=== PATIENT | male | born 1980 | race Two or more races ===

== ENCOUNTER 2022-04-16 23:27 | Emergency (ER) | payer BC ==
[~2022-04-16] VITALS: Ht 177.8 cm; Wt 97.5 kg
[2022-04-17] MEDS ORDERED: POLYMYXIN B-TMP10 ML OP (04:35)
[2022-04-17] MEDS ORDERED: REFRESH TEARS15 ML OP (04:36)
== END 2022-04-17 06:36 | disposition home or self-care (01) ==
LOC: ER 23:27
DX: H57.11 Ocular pain, right eye (principal); E07.9 Disorder of thyroid, unspecified